=== PATIENT | female | born 1985 | race Caucasian/White ===

== ENCOUNTER 2019-05-04 12:36 | Emergency (ER) | payer MEDICARE, MEDICAID ==
--- NOTE | 2019-05-04 13:22 | EDM.PDOC ---
ED HPI GENERAL MEDICAL PROBLEM - General Chief Complaint: ENT Problem Stated Complaint: FELL ON FACE INJURED NOSE Time Seen by Provider: 05/04/19 13:31 Source of Information: Reports: Patient History Limitations: Reports: No Limitations - History of Present Illness INITIAL COMMENTS - FREE TEXT/NARRATIVE: pt was having a problem following directions and she fell and hit her nose. She immediately developed alot of swelling over the nose. Onset: Today Duration: Hour(s): Location: Reports: Face Associated Symptoms: Reports: No Other Symptoms, Other (pt did have a large nose bleed. ) - Related Data Allergies Allergy/AdvReac Type Severity Reaction Status Date / Time Sulfa (Sulfonamide Allergy Other Verified 05/04/19 13:10 Antibiotics) Home Meds: Home Meds Aspirin [Halfprin] 81 mg PO DAILY 05/04/19 [History] Dapagliflozin Propanediol [Farxiga] 5 mg PO DAILY 05/04/19 [History] Ezetimibe [Zetia] 10 mg PO DAILY 05/04/19 [History] Insulin Degludec [Tresiba] 14 unit SQ DAILY 05/04/19 [History] Levothyroxine Sodium [Synthroid] 112 mcg PO ACBREAKFAST 05/04/19 [History] Linagliptin [Tradjenta] 5 mg PO DAILY 05/04/19 [History] Losartan [Cozaar] 25 mg PO DAILY 05/04/19 [History] Sertraline HCl [Zoloft] 150 mg PO DAILY 05/04/19 [History] atorvaSTATin [Lipitor] 80 mg PO BEDTIME 05/04/19 [History] Social & Family History - Tobacco Use Smoking Status *Q: Never Smoker Second Hand Smoke Exposure: No - Caffeine Use Caffeine Use: Reports: None - Recreational Drug Use Recreational Drug Use: No ED ROS ENT - Review of Systems Review Of Systems: See Below Constitutional: Reports: No Symptoms HEENT: Reports: Nosebleed, Other (pt fell and hit her nose. ) Respiratory: Reports: No Symptoms Cardiovascular: Reports: No Symptoms Endocrine: Reports: No Symptoms GI/Abdominal: Reports: No Symptoms : Reports: No Symptoms Musculoskeletal: Reports: No Symptoms ED EXAM, ENT - Physical Exam Exam: See Below Text/Narrative:: pt fell and hit her nose. She has an abrasion on her nose and it is very swollen. Exam Limited By: No Limitations General Appearance: Alert, Anxious, Mild Distress, Other (t is having problems cooperating) Ears: Normal TMs Nose: Other (nose has an abrasion on it and it is very swollen. ) Mouth/Throat: Normal Inspection Head: Atraumatic Neck: Normal Inspection Respiratory/Chest: No Respiratory Distress Course - Vital Signs Last Recorded V/S: Last Vital Signs Temp 36.4 C 05/04/19 13:12 Pulse 114 H 05/04/19 13:12 Resp 18 05/04/19 13:12 BP 133/90 05/04/19 13:12 Pulse Ox 94 L 05/04/19 13:12 - Orders/Labs/Meds Orders: Active Orders 24 hr Category Date Time Status Vaccines to be Administered [RC] PER UNIT ROUTINE Care 05/04/19 14:25 Active Meds: Medications Discontinued Medications Generic Name Dose Route Start Last Admin Trade Name Freq PRN Reason Stop Dose Admin Diphtheria/Tetanus/Acell Pertussis 0.5 ml 05/04/19 14:25 Adacel IM 05/04/19 14:26 .ONCE ONE - Re-Assessments/Exams Free Text/Narrative Re-Assessment/Exam: 05/04/19 14:29 there does not appear to be a hematoma on the septum. Xrays show the septum to be midline. She has a definite nasal fracture. Pt is due for her tdap so that was given. Departure - Departure Time of Disposition: 14:26 Disposition: Home, Self-Care 01 Condition: Fair Clinical Impression: Nasal fracture - Discharge Information Referrals: PCP,None [Primary Care Provider] - Forms: ED Department Discharge Care Plan Goals: cool pack to the nasal area, tylenol or motrin for pain, xrays to be placed on disc, appt with ENT in 1 week to evaluate alignment of the nose and septum. Sepsis Event Note - Evaluation Sepsis Screening Result: No Definite Risk - Focused Exam Vital Signs: Vital Signs Temp Pulse Resp BP Pulse Ox 05/04/19 13:12 36.4 C 114 H 18 133/90 94 L 05/04/19 13:09 36.4 C 114 H 18 133/90 94 L Date Exam was Performed: 05/04/19 Time Exam was Performed: 14:28 - My Orders Last 24 Hours: My Active Orders 05/04/19 14:25 Vaccines to be Administered [RC] PER UNIT ROUTINE - Assessment/Plan Last 24 Hours: My Active Orders 05/04/19 14:25 Vaccines to be Administered [RC] PER UNIT ROUTINE
--- NOTE | 2019-05-04 14:24 | CR ---
Nasal Bone Min 3V CLINICAL HISTORY: Trauma FINDINGS: There is a depressed fracture the tip of the nasal bones the lateral image. There is some mild irregularity of the anterior nasal spine and the nondisplaced fracture here is not excluded. Nasal septum is essentially midline. No air-fluid levels are seen IMPRESSION: Fracture the tip of the nasal bones which is slightly depressed Probable nondisplaced fracture anterior nasal spine
[2019-05-04] MEDS ORDERED: Diphtheria,Pertussis(Acell),Tetanus Vaccine 0.5 ML SDV IM ONE (14:25)
== END 2019-05-04 14:43 | disposition home or self-care (01) ==
LOC: JP.ED 12:36
DX: S02.2XXA Fracture of nasal bones, initial encounter for closed fracture (principal); Z88.2 Allergy status to sulfonamides; Z79.899 Other long term (current) drug therapy; Z23 Encounter for immunization; W22.8XXA Striking against or struck by other objects, initial encounter
CPT/HCPCS: 70160; 70160-26; 90471; 90715; 99283; 99283-25